=== PATIENT | male | born 1965 | race Caucasian/White ===

== ENCOUNTER → 2021-03-10 | Outpatient (CLI) | payer OTHER ==
[~2021-03-10] MED LIST: LIPITOR20 MG PO; NORCO 325 MG-7.1 TAB PO; NORVASC 10MG10 MG PO; PROMETHAZINE12.5 M5 PO; ULTRAM 50MG TAB50 MG PO; ZOFRAN ODT4 MG PO
== END ==
LOC: COL.RAD 06:58
DX: M23.221 Derangement of posterior horn of medial meniscus due to old tear or injury, right knee (principal); M17.11 Unilateral primary osteoarthritis, right knee